=== PATIENT | female | born 1990 | race Caucasian/White ===

== ENCOUNTER 2021-08-24 10:23 | Emergency (ER) | payer BC ==
[~2021-08-24] VITALS: Ht 157.5 cm; Wt 52.2 kg
[2021-08-24] MEDS ORDERED: ATIVAN (10:37)
[2021-08-24] MEDS ORDERED: SERT50TA14 (10:37)
[2021-08-24] MEDS ORDERED: LORAZEPAM 2 MG/1 ML VIAL IV ONE (10:45)
[2021-08-24] MEDS ORDERED: LORAZEPAM 2 MG/1 ML VIAL ONE (10:47)
[2021-08-24 11:34] LABS: HEMATOCRIT 37.8 % (31.2-41.9); MEAN CORPUSCULAR VOLUME 87.9 fL (75.5-95.3); PLATELET COUNT (AUTO) 270 K/uL (179-408)
[2021-08-24] MEDS ORDERED: PRED20TA PO (11:49)
[2021-08-24 12:28] VITALS: BP 111/72
== END 2021-08-24 12:20 | disposition home or self-care (01) ==
LOC: ER 10:23
DX: L50.9 Urticaria, unspecified (principal); R23.3 Spontaneous ecchymoses; T38.0X5A Adverse effect of glucocorticoids and synthetic analogues, initial encounter; T41.3X5A Adverse effect of local anesthetics, initial encounter; Y92.531 Health care provider office as the place of occurrence of the external cause; O99.345 Other mental disorders complicating the puerperium; Z79.899 Other long term (current) drug therapy; Z88.2 Allergy status to sulfonamides; F41.8 Other specified anxiety disorders
CPT/HCPCS: 36415; 84702; 85025; 96374; 99284; J2060; A4663